=== PATIENT | male | born 1960 | race Caucasian/White ===

== ENCOUNTER 2019-07-01 11:22 | Day surgery (SDC) | payer BC ==
[2019-07-01] MEDS ORDERED: MIDAZOLAM 2 MG/2 ML VIAL IVP ONE (11:23)
[2019-07-01] MEDS ORDERED: fentaNYL 250 MCG/5 ML VIAL IVP ONE (11:23)
[2019-07-01] MEDS ORDERED: LACTATED RINGERS 1,000 ML IV ONE (11:42)
[2019-07-01 14:00] VITALS: BP 123/94
== END 2019-07-01 11:23 | disposition home or self-care (01) ==
LOC: SDS 11:22
PROVIDERS: ATTEND Surgery
PROC: 0DBP8ZZ Excision of Rectum, Via Natural or Artificial Opening Endoscopic (ICD-10-PCS; 2019-07-01)
PROC: 0DBP8ZZ Excision of Rectum, Via Natural or Artificial Opening Endoscopic (ICD-10-PCS; principal; 2019-07-01 13:15)
DX: Z12.11 Encounter for screening for malignant neoplasm of colon (principal); D12.8 Benign neoplasm of rectum; K62.1 Rectal polyp; K57.30 Diverticulosis of large intestine without perforation or abscess without bleeding; I10 Essential (primary) hypertension; E78.5 Hyperlipidemia, unspecified
CPT/HCPCS: 45380; 45385; J3010; J7120

== ENCOUNTER 2019-12-22 08:52 | Outpatient (CLI) | payer BC ==
[2019-12-22 15:59] LABS: ALBUMIN 4.5 g/dL (3.2-5.5); ALKALINE PHOSPHATASE 54 IU/L (42-121); ALT ALANINE AMINOTRANSFERASE 25 IU/L (10-60); AST ASPARTATE AMINOTRANSFERASE 21 IU/L (10-42); BILIRUBIN,TOTAL 0.8 mg/dL (0.2-1.0); BUN - BLOOD UREA NITROGEN 16 mg/dL (6-20); CALCIUM 8.9 mg/dL (8.5-10.3); CARBON DIOXIDE - CO2 26 mmol/L (21-32); CHLORIDE 104 mmol/L (101-111); CHOL/HDL RATIO 5.6 (<5.0); CHOLESTEROL 230 mg/dL; GLUCOSE 101 mg/dL (70-100); HDL CHOLESTEROL 41 mg/dL; LDL CHOLESTEROL,CALCULATED 149 mg/dL; LDL/HDL RATIO 3.6 (<3.6); SODIUM 138 mmol/L (135-145); TOTAL PROTEIN 6.8 g/dL (6.7-8.2); VLDL CHOLESTEROL 40 mg/dL
== END 2019-12-22 08:53 | disposition home or self-care (01) ==
LOC: LAB.S 08:52
PROVIDERS: ATTEND Family Medicine
DX: I10 Essential (primary) hypertension (principal); E78.5 Hyperlipidemia, unspecified; Z12.5 Encounter for screening for malignant neoplasm of prostate
CPT/HCPCS: 36415; 80053; 80061; 83721; 84153

== ENCOUNTER 2020-02-19 14:09 | Outpatient (CLI) | payer BC | END 2020-02-19 14:10 | disposition home or self-care (01) | LOC: COV 14:09 | PROVIDERS: ATTEND Surgery | DX: Z01.818 Encounter for other preprocedural examination (principal); K42.9 Umbilical hernia without obstruction or gangrene; Z20.828 Contact with and (suspected) exposure to other viral communicable diseases ==

== ENCOUNTER 2020-02-23 08:57 | Day surgery (SDC) | payer BC ==
[2020-02-23] MEDS ORDERED: BUPIVACAINE 0.25% PF 30 ML VIAL ONE ×2 (09:22→13:23)
[2020-02-23] MEDS ORDERED: LIDOCAINE 1% 50 ML MDV ONE (09:22)
[2020-02-23] MEDS ORDERED: LACTATED RINGERS 1,000 ML IV ONE ×2 (09:24→14:38)
[2020-02-23] MEDS ORDERED: CEFAZOLIN SODIUM IN 0.9 % NACL 2 GM/100 ML BAG IV ONE (10:07)
--- NOTE | 2020-02-23 10:23 | ANESTHESIA ---
Pre-Anesthesia VS, & Labs - Diagnosis incarcerated umbilical hernia - Procedure Umbilical Hernia Repair with mesh Vital Signs: Temp Pulse Resp BP Pulse Ox 36.8 C 70 20 156/89 H 99 02/23/20 09:24 02/23/20 09:24 02/23/20 09:24 02/23/20 09:24 02/23/20 09:24 Height 5 ft 11 in Weight (kg) 111.3 kg - NPO >8 hours - Lab Results Lab results reviewed: Yes Home Medications and Allergies Home Medications: Ambulatory Orders Celecoxib 200 mg PO DAILY 02/16/20 Nebivolol HCl [Bystolic] 10 mg PO DAILY 02/16/20 methocarbamoL [Methocarbamol] 500 mg PO TID PRN 02/16/20 Atorvastatin [Lipitor] 20 mg PO QPM 07/01/19 Gabapentin 300 mg PO BID 07/01/19 Celecoxib 200 mg PO DAILY 02/16/20 Nebivolol HCl [Bystolic] 10 mg PO DAILY 02/16/20 methocarbamoL [Methocarbamol] 500 mg PO TID PRN 02/16/20 Allergies/Adverse Reactions: Allergies Allergy/AdvReac Type Severity Reaction Status Date / Time VARGHESE Inhibitors Allergy Edema Verified 02/16/20 12:31 Anes History & Medical History - Anesthetic History Anesthesia Complications: reports: No previous complications Family history of Anesthesia Complications: Denies Family history of Malignant Hyperthermia: Denies - Medical History Cardiovascular: reports: Hypertension, High cholesterol Pulmonary: reports: None Gastrointestinal: reports: Colon polyps Urinary: reports: None Musculoskeletal: reports: Osteoarthritis, Other Endocrine/Autoimmune: reports: None Skin: reports: None - Surgical History General: Colonoscopy Eyes Ears Nose Throat (EENT): Cataracts Orthopedic: Other Exam General: Alert, Oriented x3, Cooperative, No acute distress Dental: WNL Mouth Openin Fingerbreadth Neck Mobility: Normal Mallampati classification: II Respiratory: Lungs clear, Normal breath sounds, No respiratory distress, No accessory muscle use Cardiovascular: Regular rate, Normal S1, Normal S2, No murmurs Abdomen: Normal bowel sounds, Soft, No tenderness, No hepatospenomegaly, No masses Extremities: No clubbing, No cyanosis, No edema, Normal pulses, No tenderness/swelling Neurological: Normal gait, Normal speech, Strength at 5/5 X4 ext, Normal tone, Sensation intact, Cranial nerves 3-12 NL, Reflexes 2+ Mental/Cognitive Status: Alert/Oriented X3, Normal for patient Cognitive Status: Within normal limits Plan Anesthesia Type: General Consent for Procedure(s) Verified and Reviewed: Yes Code Status: Attempt Resuscitation ASA classification: 2-Mild systemic disease Is this case an emergency?: No
[2020-02-23] MEDS ORDERED: fentaNYL 100 MCG/2 ML VIAL IVP ONE (12:21)
[2020-02-23] MEDS ORDERED: NEOSTIGMINE 1 MG/1 ML 10 ML MDV IVP ONE (12:21)
[2020-02-23] MEDS ORDERED: PROPOFOL 200 MG/20 ML VIAL IVP ONE (12:21)
[2020-02-23] MEDS ORDERED: LIDOCAINE 1% 50 ML MDV SUBQ ONE ×2 (12:21→13:57)
[2020-02-23] MEDS ORDERED: DEXAMETHASONE 4 MG/ML VIAL IVP ONE (12:21)
[2020-02-23] MEDS ORDERED: MIDAZOLAM 2 MG/2 ML VIAL IVP ONE (12:21)
[2020-02-23] MEDS ORDERED: ONDANSETRON 4 MG/2 ML VIAL IVP ONE (12:21)
[2020-02-23] MEDS ORDERED: LIDOCAINE-MPF 2% 5 ML VIAL IM ONE (12:21)
[2020-02-23] MEDS ORDERED: GLYCOPYRROLATE 1 MG/5 ML VIAL IVP ONE (12:21)
[2020-02-23] MEDS ORDERED: ROCURONIUM 50 MG/5 ML VIAL IVP ONE (12:21)
[2020-02-23] MEDS ORDERED: BUPIVACAINE 0.25% PF 30 ML VIAL SUBQ ONE ×2 (12:21→13:57)
[2020-02-23] MEDS ORDERED: MORPHINE 2 MG/ML CARPUJECT IVP PRN (13:04)
[2020-02-23] MEDS ORDERED: ePHEDrine 50 MG/ML VIAL IVP PRN (13:04)
[2020-02-23] MEDS ORDERED: NALOXONE 0.4 MG/ML VIAL IVP PRN (13:04)
[2020-02-23] MEDS ORDERED: ATROPINE ABBOJECT 1 MG/10 ML SYRINGE IVP PRN (13:04)
[2020-02-23] MEDS ORDERED: ONDANSETRON 4 MG/2 ML VIAL IVP PRN (13:04)
[2020-02-23] MEDS ORDERED: fentaNYL 100 MCG/2 ML VIAL IVP PRN (13:04)
[2020-02-23] MEDS ORDERED: METOCLOPRAMIDE 10 MG/2 ML VIAL IVP PRN (13:04)
[2020-02-23] MEDS ORDERED: ACETAMINOPHEN 1,000 MG/100 ML 100 ML IV ONE ×2 (13:04→14:21)
[2020-02-23] MEDS ORDERED: LACTATED RINGERS 1,000 ML IV SCH (14:00)
[2020-02-23] MEDS ORDERED: LACTATED RINGERS 200 ML IV ONE (14:05)
[2020-02-23] MEDS: HYDROmorphone 0.5 MG/0.5 ML SYRINGE IVP PRN ×3 (14:15→14:31)
[2020-02-23] MEDS ORDERED: HYDROmorphone 0.5 MG/0.5 ML SYRINGE ONE ×2 (14:21→14:33)
[2020-02-23] MEDS ORDERED: HYDROcod/ACETAM 5/325 MG TABLET PO PRN (14:21)
[2020-02-23 15:02] VITALS: BP 145/96
--- NOTE | 2020-02-24 03:02 | OPERATIVE REPORT ---
DATE OF SERVICE: 02/23/2020 Physician: Fredi Jones MD PREOPERATIVE DIAGNOSIS: Large incarcerated umbilical hernia. POSTOPERATIVE DIAGNOSIS: Large incarcerated umbilical hernia. PROCEDURE PERFORMED 1. Open repair of incarcerated umbilical hernia with mesh. 2. Preperitoneal dissection for mesh placement. 3. Resection of incarcerated portion of incarcerated omentum. 4. Extra degree difficulty due to size and extent of the hernia SURGEON: Fredi Jones MD CHUTE FEEDER: None. ANESTHESIA: General endotracheal anesthesia. Local anesthesia with Marcaine. COMPLICATIONS: None. SPECIMEN: Anterior hernia sac and approximately 4 x 6 cm omentum removed, however, not sent for pathology. ESTIMATED BLOOD LOSS: 10 mL DRAINS: None. COMPLICATIONS: None. PROSTHETIC: A 2 to 2-1/2-inch wide x 5 inch tall polypropylene mesh placed preperitoneal retrorectus. FINDINGS: A 4 x 5 cm umbilical hernia with very significant diastasis or attenuated fascia just cephalad. INDICATIONS FOR PROCEDURE: The patient is an active 60-year-old gentleman with a very symptomatic umbilical hernia. He has had a hernia for many years. The skin had been stretched to approximately 6 cm and is thin and purple. He presents for an open repair with mesh. Risks discussed and alternatives discussed. All questions answered and consent obtained. DETAILS OF PROCEDURE The patient was properly identified and brought to the operating room and placed in supine position. General endotracheal anesthesia was induced. Sequential compression devices were placed. He was prepped and draped in a sterile fashion and given preoperative antibiotics. A 6 cm long elliptical incision was made around the attenuated umbilical skin. Dissection proceeded with cutting current or sharp dissection. The umbilical skin was sharply excised away from the hernia sac. The hernia sac was then mobilized away from surrounding subcutaneous tissue down to the fascia. The hernia sac was then carefully released at the fascial defect edge. Approximately 3 cm anterior to the fascia, the hernia sac was opened. The incarcerated omentum and anterior hernia sac was removed with clamps and 2-0 Vicryl tie. The hernia sac was then closed with a running 3-0 Vicryl suture. The preperitoneal retrorectus space was then carefully developed, largely with blunt dissection. He did have laxity of his abdominal wall, allowing for closure of the fascia over the mesh. A 2 to 2-1/2-inch wide x 5 inch tall polypropylene mesh was placed preperitoneal retrorectus and secured with approximately a dozen interrupted 0 Ethibond sutures. Prior to this, the very attenuated fascia 4 cm cephalad was imbricated with interrupted 0 Ethibond sutures. The fascia was then closed over the mesh with additional interrupted 0 Ethibond sutures. There were no apparent complications. Hemostasis was ensured. Subcutaneous tissue was reapproximated with interrupted 2-0 Vicryl suture. Buried interrupted subdermal 3-0 Vicryl sutures were then placed. Skin was closed with a running 4-0 Monocryl subcuticular suture. Steri-Strips and dressing were applied. He tolerated the procedure well. TD: 02/23/2020 17:17 MARAH
== END 2020-02-23 08:58 | disposition home or self-care (01) ==
LOC: SDS 08:57
PROVIDERS: ATTEND Surgery
DX: K42.0 Umbilical hernia with obstruction, without gangrene (principal); I10 Essential (primary) hypertension
CPT/HCPCS: 49587; C1781; J0131; J0690; J1170; J7120

== ENCOUNTER 2021-08-29 09:37 | Outpatient (CLI) | payer BC | END 2021-08-29 09:38 | disposition home or self-care (01) | LOC: LAB.S 09:37 | DX: Z00.00 Encounter for general adult medical examination without abnormal findings (principal); Z79.899 Other long term (current) drug therapy; E78.5 Hyperlipidemia, unspecified; I10 Essential (primary) hypertension; Z53.9 Procedure and treatment not carried out, unspecified reason ==

== ENCOUNTER 2021-09-06 09:29 | Outpatient (CLI) | payer BC ==
[2021-09-06 15:14] LABS: BASOPHILS # (AUTO) 0.1 10^3/uL (0.0-0.1); BASOPHILS % (AUTO) 1.7 %; EOSINOPHILS # (AUTO) 0.2 10^3/uL (0.0-0.7); EOSINOPHILS % (AUTO) 3.2 %; HCT - HEMATOCRIT 43.7 % (42.0-52.0); HGB - HEMOGLOBIN 14.5 g/dL (14.0-18.0); LYMPHOCYTES # (AUTO) 1.2 10^3/uL (1.5-3.5); LYMPHOCYTES % (AUTO) 25.7 %; MEAN CORPUSCULAR HEMOGLOBIN 32.4 pg (27.0-31.0); MEAN CORPUSCULAR HGB CONC 33.2 g/dL (32.0-36.0); MEAN CORPUSCULAR VOLUME 97.5 fL (80.0-94.0); MEAN PLATELET VOLUME 9.4 fL (7.4-11.4); MONOCYTES # (AUTO) 0.5 10^3/uL (0.0-1.0); MONOCYTES % (AUTO) 10.6 %; NEUTROPHILS # (AUTO) 2.8 10^3/uL (1.5-6.6); NEUTROPHILS % (AUTO) 58.6 %; PLT - PLATELET COUNT 212 10^3/uL (130-450); RED BLOOD COUNT 4.48 10^6/uL (4.70-6.10); RED CELL DISTRIBUTION WIDTH 11.9 % (12.0-15.0); WHITE BLOOD COUNT 4.7 x10^3/uL (4.8-10.8)
[2021-09-06 15:34] LABS: ALBUMIN/GLOBULIN RATIO 1.5 (1.0-2.2); ALKALINE PHOSPHATASE 51 IU/L (42-121); ALT ALANINE AMINOTRANSFERASE 22 IU/L (10-60); AST ASPARTATE AMINOTRANSFERASE 21 IU/L (10-42); BILIRUBIN,TOTAL 0.7 mg/dL (0.2-1.0); BUN - BLOOD UREA NITROGEN 13 mg/dL (6-20); CALCIUM 9.2 mg/dL (8.5-10.3); CARBON DIOXIDE - CO2 27 mmol/L (21-32); CHLORIDE 105 mmol/L (101-111); CHOL/HDL RATIO 3.2 (<5.0); CHOLESTEROL 166 mg/dL; CREATININE 0.9 mg/dL (0.6-1.2); GFR - MDRD 86 (>89); GLUCOSE 97 mg/dL (70-100); HDL CHOLESTEROL 52 mg/dL; LDL CHOLESTEROL,CALCULATED 99 mg/dL; LDL/HDL RATIO 1.9 (<3.6); POTASSIUM 4.2 mmol/L (3.5-5.0); SODIUM 140 mmol/L (135-145); TOTAL PROTEIN 6.7 g/dL (6.7-8.2); TRIGLYCERIDES 77 mg/dL; VLDL CHOLESTEROL 15 mg/dL
== END 2021-09-06 09:30 | disposition home or self-care (01) ==
LOC: LAB.S 09:29
PROVIDERS: ATTEND Internal Medicine
DX: I10 Essential (primary) hypertension (principal); E78.5 Hyperlipidemia, unspecified; Z79.899 Other long term (current) drug therapy
CPT/HCPCS: 36415; 80053; 80061; 83721; 85025

== ENCOUNTER 2022-09-11 09:43 | Outpatient (CLI) | payer BC ==
[2022-09-11 14:24] LABS: BASOPHILS # (AUTO) 0.1 10^3/uL (0.0-0.1); BASOPHILS % (AUTO) 1.4 %; EOSINOPHILS # (AUTO) 0.2 10^3/uL (0.0-0.7); EOSINOPHILS % (AUTO) 3.9 %; HGB - HEMOGLOBIN 15.1 g/dL (14.0-18.0); LYMPHOCYTES # (AUTO) 1.3 10^3/uL (1.5-3.5); LYMPHOCYTES % (AUTO) 24.4 %; MEAN CORPUSCULAR HEMOGLOBIN 31.7 pg (27.0-31.0); MEAN CORPUSCULAR HGB CONC 32.8 g/dL (32.0-36.0); MEAN CORPUSCULAR VOLUME 96.4 fL (80.0-94.0); MEAN PLATELET VOLUME 9.3 fL (7.4-11.4); MONOCYTES # (AUTO) 0.5 10^3/uL (0.0-1.0); MONOCYTES % (AUTO) 10.5 %; NEUTROPHILS # (AUTO) 3.1 10^3/uL (1.5-6.6); NEUTROPHILS % (AUTO) 59.6 %; PLT - PLATELET COUNT 244 10^3/uL (130-450); RED BLOOD COUNT 4.77 10^6/uL (4.70-6.10); RED CELL DISTRIBUTION WIDTH 11.8 % (12.0-15.0); WHITE BLOOD COUNT 5.1 x10^3/uL (4.8-10.8)
[2022-09-11 15:24] LABS: ALBUMIN 4.4 g/dL (3.2-5.5); ALBUMIN/GLOBULIN RATIO 1.6 (1.0-2.2); ALKALINE PHOSPHATASE 60 IU/L (42-121); ALT ALANINE AMINOTRANSFERASE 23 IU/L (10-60); AST ASPARTATE AMINOTRANSFERASE 20 IU/L (10-42); BILIRUBIN,TOTAL 0.9 mg/dL (0.2-1.0); BUN - BLOOD UREA NITROGEN 13 mg/dL (6-20); CALCIUM 9.3 mg/dL (8.5-10.3); CARBON DIOXIDE - CO2 28 mmol/L (21-32); CHLORIDE 106 mmol/L (101-111); CHOL/HDL RATIO 3.3 (<5.0); CHOLESTEROL 180 mg/dL; CREATININE 0.8 mg/dL (0.6-1.2); GFR - MDRD 98 (>89); GLUCOSE 97 mg/dL (70-100); HDL CHOLESTEROL 54 mg/dL; LDL CHOLESTEROL,CALCULATED 102 mg/dL; LDL/HDL RATIO 1.9 (<3.6); POTASSIUM 4.7 mmol/L (3.5-5.0); SODIUM 138 mmol/L (135-145); TOTAL PROTEIN 7.2 g/dL (6.7-8.2); TRIGLYCERIDES 122 mg/dL; VLDL CHOLESTEROL 24 mg/dL
== END 2022-09-11 09:44 | disposition home or self-care (01) ==
LOC: LAB.S 09:43
PROVIDERS: ATTEND Registered Nurse
DX: I10 Essential (primary) hypertension (principal)
CPT/HCPCS: 36415; 80053; 80061; 83721; 85025

== ENCOUNTER 2023-07-31 09:48 | Outpatient (CLI) | payer BC ==
--- NOTE | 2023-07-31 12:53 | XRAY Report ---
PROCEDURE: Elbow 3+V RT INDICATIONS: EPICONDYLITIS,RIGHT TECHNIQUE: 3 views of the elbow were acquired. COMPARISON: None. FINDINGS: Bones: No fractures or dislocations. Mild enthesophyte formation at the epicondyles bilaterally. No suspicious bony lesions. Soft tissues: No effusion. No suspicious soft tissue calcifications or masses. IMPRESSION: 1.No acute bony abnormality. 2.Mild enthesophyte formation of the epicondyles bilaterally, may be secondary to epicondylitis per c linical history. MRI could be obtained for further evaluation as clinically indicated. Reviewed by: Fran Weiner MD on 07/31/2023 12:51 PM PST Approved by: Fran Weiner MD on 07/31/2023 12:51 PM PST Station ID: [id number]
--- NOTE | 2023-07-31 20:01 | XRAY Report ---
PROCEDURE: Cervical Spine w/Flex/Ext 6+V INDICATIONS: CERVICAL RADICULOPATHY,RIGHT TECHNIQUE: 7 views of the cervical spine were acquired. COMPARISON: None. FINDINGS: Bones: Vertebral body height and alignment is maintained. Normal bone mineralization and cranioverte bral relationships. No fracture or traumatic malalignment. Bridging anterior osteophytes noted at C5 -6 and C6-7. Straightening of normal cervical lordosis present. Flexion and extension imaging shows no evidence of instability. Oblique images show facet hypertrophy and foraminal stenosis at C2-3 and C3-4 on the right Soft tissues: Prevertebral soft tissues are normal in thickness. 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
== END 2023-07-31 09:49 | disposition home or self-care (01) ==
LOC: DI.S 09:48
PROVIDERS: ATTEND Internal Medicine
DX: M77.8 Other enthesopathies, not elsewhere classified (principal); M47.22 Other spondylosis with radiculopathy, cervical region; M48.02 Spinal stenosis, cervical region

== ENCOUNTER 2023-09-19 10:10 | Outpatient (CLI) | payer BC ==
[2023-09-19 14:30] LABS: BASOPHILS # (AUTO) 0.1 10^3/uL (0.0-0.1); BASOPHILS % (AUTO) 1.7 %; EOSINOPHILS # (AUTO) 0.2 10^3/uL (0.0-0.7); EOSINOPHILS % (AUTO) 3.6 %; HCT - HEMATOCRIT 44.7 % (42.0-52.0); HGB - HEMOGLOBIN 14.6 g/dL (14.0-18.0); LYMPHOCYTES # (AUTO) 1.4 10^3/uL (1.5-3.5); MEAN CORPUSCULAR HEMOGLOBIN 31.9 pg (27.0-31.0); MEAN CORPUSCULAR HGB CONC 32.7 g/dL (32.0-36.0); MEAN CORPUSCULAR VOLUME 97.6 fL (80.0-94.0); MEAN PLATELET VOLUME 9.1 fL (7.4-11.4); MONOCYTES # (AUTO) 0.5 10^3/uL (0.0-1.0); NEUTROPHILS # (AUTO) 2.6 10^3/uL (1.5-6.6); NEUTROPHILS % (AUTO) 55.5 %; PLT - PLATELET COUNT 223 10^3/uL (130-450); RED BLOOD COUNT 4.58 10^6/uL (4.70-6.10); RED CELL DISTRIBUTION WIDTH 11.8 % (12.0-15.0); WHITE BLOOD COUNT 4.7 x10^3/uL (4.8-10.8)
[2023-09-19 15:01] LABS: ALBUMIN 4.3 g/dL (3.2-5.5); ALBUMIN/GLOBULIN RATIO 1.7 (1.0-2.2); ALKALINE PHOSPHATASE 64 IU/L (42-121); ALT ALANINE AMINOTRANSFERASE 32 IU/L (10-60); AST ASPARTATE AMINOTRANSFERASE 29 IU/L (10-42); BILIRUBIN,TOTAL 0.6 mg/dL (0.2-1.0); BUN - BLOOD UREA NITROGEN 10 mg/dL (6-20); CALCIUM 9.4 mg/dL (8.5-10.3); CARBON DIOXIDE - CO2 28 mmol/L (21-32); CHLORIDE 105 mmol/L (101-111); CHOL/HDL RATIO 2.3 (<5.0); CHOLESTEROL 149 mg/dL; CREATININE 0.9 mg/dL (0.6-1.3); GFR - MDRD 85 (>89); GLUCOSE 79 mg/dL (74-104); HDL CHOLESTEROL 66 mg/dL; LDL CHOLESTEROL,CALCULATED 68 mg/dL; POTASSIUM 4.8 mmol/L (3.5-4.5); SODIUM 138 mmol/L (135-145); TOTAL PROTEIN 6.8 g/dL (6.4-8.9); TRIGLYCERIDES 77 mg/dL (48-352); VLDL CHOLESTEROL 15 mg/dL
[2023-09-19 20:18] LABS: ESTIMATED AVERAGE GLUCOSE 108 mg/dL (70-100); HEMOGLOBIN A1c% 5.4 % (4.27-6.07)
== END 2023-09-19 10:11 | disposition home or self-care (01) ==
LOC: LAB.S 10:10
PROVIDERS: ATTEND Internal Medicine
DX: I10 Essential (primary) hypertension (principal); E78.5 Hyperlipidemia, unspecified; Z13.228 Encounter for screening for other metabolic disorders; Z12.5 Encounter for screening for malignant neoplasm of prostate
CPT/HCPCS: 36415; 80053; 80061; 83036; 83721; 84153; 85025